=== PATIENT | female | born 1995 | race Caucasian/White ===

== ENCOUNTER 2020-08-07 02:26 | Observation (INO) ==
[2020-08-07] MEDS ORDERED: NS 0.9% 1000 ml BAG 1,000 ML IV SCH (03:45)
[2020-08-07 08:19] LABS: INR 1.16 (0.82-1.09)
[2020-08-07 08:20] LABS: ABS Monocytes 0.4 10^3/ul (0-0.8); ABS Neutrophils 2.5 10^3/ul (1.5-7.7); Eosinophil % 0.7 %; Hematocrit 29 % (35-47); Hemoglobin 9.9 g/dL (12.0-16.0); Lymphocyte % 24.4 %; Mean Corpuscular HGB Conc 34 g/dL (31-36); Mean Corpuscular Hemoglobin 29 pg (27-31); Mean Corpuscular Volume 84 fL (80-97); Platelet Count 189 10^3/uL (150-450); Red Blood Count 3.48 10^6 /uL (3.70-4.87); Red Cell Distribution Width 16 % (10-15); White Blood Count 3.9 10^3/uL (3.5-10.8)
[2020-08-07 08:27] LABS: BUN/Creatinine Ratio 26.9 (8-20); Calcium 8.3 mg/dL (8.6-10.3); EGFR African American 172.5 (>60); EGFR Non-African American 142.5 (>60); Potassium 3.5 mmol/L (3.5-5.0)
[2020-08-07] MEDS ORDERED: LORazepam 2 mg VIAL 1 ml ONE (09:14)
[2020-08-07] MEDS ORDERED: Lorazepam PYXIS KEY ONE (09:14)
[2020-08-07] MEDS: HYDROmorphone 1 MG/1 ML SYRINGE IV SLOW PU PRN ×5 (09:34→23:51)
[2020-08-07] MEDS: Potassium Chlor 10 meq TAB PO SCH ×3 (09:37→20:07)
[2020-08-07] MEDS: Ondansetron 4 mg VIAL 2 MG/ML 2 ml VIAL IV PRN (13:50)
[2020-08-07] MEDS ORDERED: diPHENhydraMINE 25 mg TAB PO PRN (14:05)
[2020-08-07] MEDS: diPHENhydraMINE IV 50 MG/ML 1 ml VIAL (BENADRYL) IV PRN ×2 (16:46→23:52)
[2020-08-08] MEDS ORDERED: Morphine ORAL.SOLN 10 mg 2 mg/ml UDC 5 ml (10 mg) PO PRN (01:02)
[2020-08-08] MEDS: HYDROmorphone 1 MG/1 ML SYRINGE IV SLOW PU PRN ×7 (03:03→23:06)
[2020-08-08] MEDS: diPHENhydraMINE IV 50 MG/ML 1 ml VIAL (BENADRYL) IV PRN ×3 (06:19→20:01)
[2020-08-08] MEDS: Potassium Chlor 10 meq TAB PO SCH ×3 (08:39→20:01)
[2020-08-08] MEDS: NS 0.9% 1000 ml BAG 1,000 ML IV SCH ×2 (11:17→18:03)
[2020-08-08] MEDS: Ondansetron 4 mg VIAL 2 MG/ML 2 ml VIAL IV PRN (23:06)
[2020-08-09] MEDS: NS 0.9% 1000 ml BAG 1,000 ML IV SCH (01:07)
[2020-08-09] MEDS: diPHENhydraMINE IV 50 MG/ML 1 ml VIAL (BENADRYL) IV PRN ×2 (02:03→08:24)
[2020-08-09] MEDS: HYDROmorphone 1 MG/1 ML SYRINGE IV SLOW PU PRN ×3 (02:04→08:24)
[2020-08-09 07:50] VITALS: BP 132/62
[2020-08-09] MEDS: Potassium Chlor 10 meq TAB PO SCH (08:24)
== END 2020-08-09 08:35 | disposition home or self-care (01) ==
LOC: MEDTELE 02:26 → ED 02:26 → MEDTELE 08-08 18:17
PROVIDERS: ADMIT Internal Medicine; ATTEND Internal Medicine

== ENCOUNTER 2020-09-25 01:09 | Observation (INO) ==
[2020-09-25] MEDS: Ondansetron 4 mg VIAL 2 MG/ML 2 ml VIAL IV ONE ×3 (04:39→07:53)
[2020-09-25] MEDS ORDERED: diPHENhydraMINE IV 50 MG/ML 1 ml VIAL (BENADRYL) ONE (04:46)
[2020-09-25] MEDS ORDERED: diPHENhydraMINE IV 50 MG/ML 1 ml VIAL (BENADRYL) IV ONE (04:47)
[2020-09-25 04:54] LABS: Urine Benzodiazepine Screen None Detected (None Detect); Urine Cannabinoids Screen None Detected (None Detect); Urine Opiates Screen Presumptive Positive (None Detect)
[2020-09-25 04:58] LABS: Urine Appearance Cloudy; Urine Bilirubin Negative (Negative); Urine Blood 3+ (Negative); Urine Glucose Negative (Negative); Urine Ketones Negative (Negative); Urine Nitrite Negative (Negative); Urine Protein 1+(30 mg/dL) (Negative); Urine Specific Gravity 1.009 (1.010-1.030); Urine Urobilinogen Negative (Negative)
[2020-09-25 04:59] LABS: Urine Color Red
[2020-09-25 06:32] LABS: Urine Red Blood Cell 3+(>10/hpf) (Absent); Urine Squamous Epithelial Cell Present (Absent); Urine White Blood Cell Trace(0-5/hpf) (Absent)
[2020-09-25] MEDS ORDERED: NS 0.9% 1000 ml BAG 1,000 ML IV ONE (07:11)
[2020-09-25] MEDS ORDERED: Lorazepam PYXIS KEY PRN (07:47)
[2020-09-25] MEDS ORDERED: LORazepam 2 mg VIAL 1 ml IV PUSH ONE (07:47)
[2020-09-25] MEDS ORDERED: LORazepam 2 mg VIAL 1 ml ONE (07:47)
[2020-09-25] MEDS ORDERED: Lorazepam PYXIS KEY ONE (07:47)
[2020-09-25] MEDS ORDERED: Morphine 15 mg TAB (NF) PO ONE (08:21)
[2020-09-25] MEDS ORDERED: Morphine ORAL.SOLN 10 mg 2 mg/ml UDC 5 ml (10 mg) PO ONE (08:30)
[2020-09-25] MEDS ORDERED: HYDROmorphone 1 MG/1 ML SYRINGE IV SLOW PU ONE (11:30)
[2020-09-25] MEDS ORDERED: Iohexol 300 (CONTRAST) 10 ML SDV IV ONE (11:47)
[2020-09-25] MEDS: diPHENhydraMINE IV 50 MG/ML 1 ml VIAL (BENADRYL) IV PRN ×2 (12:13→18:22)
[2020-09-25] MEDS: NS 0.9% 1000 ml BAG 1,000 ML IV SCH ×2 (12:13→19:29)
[2020-09-25] MEDS: Potassium Citrate TAB (NF) 15 MEQ TABLET.ER PO SCH ×2 (13:45→20:33)
[2020-09-25] MEDS: HYDROmorphone 1 MG/1 ML SYRINGE IV SLOW PU PRN ×3 (14:41→21:30)
[2020-09-26] MEDS: diPHENhydraMINE IV 50 MG/ML 1 ml VIAL (BENADRYL) IV PRN ×2 (00:28→07:56)
[2020-09-26] MEDS: HYDROmorphone 1 MG/1 ML SYRINGE IV SLOW PU PRN ×4 (00:28→11:07)
[2020-09-26] MEDS: NS 0.9% 1000 ml BAG 1,000 ML IV SCH ×2 (02:05→09:46)
[2020-09-26] MEDS: Potassium Citrate TAB (NF) 15 MEQ TABLET.ER PO SCH (10:17)
[2020-09-26] MEDS: Potassium Chlor 10 meq TAB PO SCH ×3 (11:05→20:36)
[2020-09-26] MEDS ORDERED: Morphine ER 30 mg TAB ** extended release PO ONE (13:52)
[2020-09-26] MEDS ORDERED: Ondansetron ODT 4 mg TAB 4 MG TAB SL PRN (14:22)
[2020-09-26] MEDS ORDERED: Lorazepam PYXIS KEY ONE ×3 (14:38→15:46)
[2020-09-26] MEDS ORDERED: LORazepam 2 mg VIAL 1 ml ONE ×5 (14:39→15:53)
[2020-09-26] MEDS ORDERED: LORazepam 2 mg VIAL 1 ml IV PUSH ONE ×5 (14:39→15:53)
[2020-09-26] MEDS ORDERED: Lorazepam PYXIS KEY PRN ×2 (15:50→19:46)
[2020-09-26] MEDS: Morphine ORAL.SOLN 10 mg 2 mg/ml UDC 5 ml (10 mg) PO SCH ×2 (16:52→22:37)
[2020-09-26] MEDS: LORazepam 2 mg VIAL 1 ml IV PUSH PRN (19:55)
[2020-09-26] MEDS: Ondansetron 4 mg VIAL 2 MG/ML 2 ml VIAL IV PRN (19:59)
[2020-09-27] MEDS: Ondansetron 4 mg VIAL 2 MG/ML 2 ml VIAL IV PRN (03:51)
[2020-09-27] MEDS: LORazepam 2 mg VIAL 1 ml IV PUSH PRN (03:52)
[2020-09-27] MEDS: Morphine ORAL.SOLN 10 mg 2 mg/ml UDC 5 ml (10 mg) PO SCH ×2 (05:03→11:11)
[2020-09-27] MEDS: Potassium Chlor 10 meq TAB PO SCH (08:32)
[2020-09-27 08:55] VITALS: BP 118/66
== END 2020-09-27 11:43 | disposition home or self-care (01) ==
LOC: MEDTELE 01:09 → ED 01:09 → MEDTELE 12:53
PROVIDERS: ADMIT Internal Medicine; ATTEND Internal Medicine